=== PATIENT | female | born 1990 | race Caucasian/White ===

== ENCOUNTER 2019-10-17 19:56 | Inpatient (IN) ==
[2019-10-17] MEDS ORDERED: Naloxone 0.4 MG/ML INJ IVP PRN (23:18)
[2019-10-17] MEDS ORDERED: Acetaminophen 325 MG TABLET PO PRN (23:18)
[2019-10-17] MEDS ORDERED: Potassium Chloride 40 MEQ in D5% in 0.9% NACL 1,000 ML IVC SCH (23:45)
[2019-10-18 02:35] LABS: Hematocrit 20.5 % (35.3-44.9)
[2019-10-18 02:37] LABS: Basophils % 0.2 %; Hemoglobin 6.2 g/dL (11.5-15.4); Immature Granulocytes % 0.6 % (0-4); Immature Platelets 2.6 % (1.1-6.1); Lymphocytes # 1.5 K/mcL (0.6-4.6); Mean Corpuscular HGB Conc 30.2 g/dL (31.6-35.5); Mean Corpuscular Hemoglobin 30.7 pg (28.0-33.3); Mean Corpuscular Volume 101.5 fL (83.0-100.0); Mean Platelet Volume 9.7 fL (9.4-12.4); Monocytes # 0.5 K/mcL (0.0-1.3); Monocytes % 7.8 %; Neutrophils # 4.2 K/mcL (1.6-8.9); Nucleated Red Blood Cells 1.8 /100 WBC (0); Platelet Count 120 K/mcL (140-400); Red Blood Count 2.02 M/mcL (3.82-4.97); Red Cell Distribution Width 14.6 % (11.5-14.5); Segmented Neutrophils % 67.4 %; White Blood Count 6.2 K/mcL (4.3-11.1)
[2019-10-18 02:43] LABS: Platelet Estimate Decreased (Normal)
[2019-10-18 03:01] LABS: Alanine Aminotransferase < 3 Units/L (7-52); Albumin 2.3 g/dL (3.5-5.7); Albumin/Globulin Ratio 0.8 (1.1-2.2); Alkaline Phosphatase 39 Units/L (34-104); Aspartate Amino Transferase 7 Units/L (13-39); BUN/Creatinine Ratio 33 (6-26); Bilirubin,Total 0.2 mg/dL (0.3-1.0); Blood Urea Nitrogen 14 mg/dL (6-20); Calcium 8.7 mg/dL (8.6-10.3); Carbon Dioxide 39 mEq/L (23-29); Chloride 99 mEq/L (98-107); Globulin 2.9 g/dL (2.4-3.5); Glucose 144 mg/dL (70-105); Osmolality,Calculated 303 (280-300); Potassium 3.3 mEq/L (3.5-5.1); Sodium 145 mEq/L (136-145); Total Protein 5.2 g/dL (6.4-8.9); eGFR For African Americans > 60 (> 60); eGFR For Non-African Americans > 60 (> 60)
[2019-10-18 05:03] LABS: Hematocrit 18.3 % (35.3-44.9); Mean Corpuscular HGB Conc 29.5 g/dL (31.6-35.5); Mean Corpuscular Hemoglobin 30.9 pg (28.0-33.3); Mean Corpuscular Volume 104.6 fL (83.0-100.0); Mean Platelet Volume 9.5 fL (9.4-12.4); Red Blood Count 1.75 M/mcL (3.82-4.97); Red Cell Distribution Width 14.5 % (11.5-14.5); White Blood Count 6.2 K/mcL (4.3-11.1)
[2019-10-18 05:09] LABS: Platelet Count 98 K/mcL (140-400)
[2019-10-18 05:11] LABS: Hemoglobin 5.4 g/dL (11.5-15.4)
[2019-10-18 05:14] LABS: % Iron Saturation 13 % (15-50); Iron 26 mcg/dL (50-170); Transferrin 139 mg/dL (203-362)
[2019-10-18 05:16] LABS: BUN/Creatinine Ratio 36 (6-26); Blood Urea Nitrogen 15 mg/dL (6-20); Calcium 8.5 mg/dL (8.6-10.3); Carbon Dioxide 42 mEq/L (23-29); Chloride 97 mEq/L (98-107); Glucose 126 mg/dL (70-105); Magnesium 2.2 mg/dL (1.6-2.6); Osmolality,Calculated 300 (280-300); Potassium 3.5 mEq/L (3.5-5.1); Sodium 144 mEq/L (136-145); eGFR For African Americans > 60 (> 60); eGFR For Non-African Americans > 60 (> 60)
[2019-10-18 05:33] LABS: Ferritin 142 ng/mL (10-120)
[2019-10-18] MEDS ORDERED: 0.9 % Sodium Chloride 250 ML ONE ×2 (05:43→09:25)
[2019-10-18] MEDS: Divalproex (12 HR) 250 MG TABLET PO SCH (08:07)
[2019-10-18] MEDS ORDERED: Divalproex (12 HR) 500 MG TABLET PO SCH (09:00)
[2019-10-18 11:27] LABS: ABG Base Excess 17 mEq/L (-2 to 3); ABG HCO3 44 mEq/L (21-27); ABG Oxygen Saturation 99 % (95-98); ABG PCO2 68 mmHg (35-45); ABG PH 7.42 pH Units (7.32-7.45); ABG PO2 123 mmHg (85-104); ABG TCO2 46 mEq/L (20-26)
[2019-10-18 14:52] LABS: Immature Reticulocyte % 24.5 % (11.0-38.0); Retculocyte # 0.05 M/mcL (0.05-0.10); Reticulocyte % 1.4 % (1.6-2.8)
[2019-10-18 16:27] LABS: Hematocrit 35.4 % (35.3-44.9); Hemoglobin 11.4 g/dL (11.5-15.4); Mean Corpuscular HGB Conc 32.2 g/dL (31.6-35.5); Mean Corpuscular Hemoglobin 29.6 pg (28.0-33.3); Mean Corpuscular Volume 91.9 fL (83.0-100.0); Mean Platelet Volume 9.1 fL (9.4-12.4); Platelet Count 107 K/mcL (140-400); Red Blood Count 3.85 M/mcL (3.82-4.97); Red Cell Distribution Width 18.7 % (11.5-14.5); White Blood Count 4.2 K/mcL (4.3-11.1)
[2019-10-18 17:15] LABS: Hematocrit 31.3 % (35.3-44.9); Hemoglobin 10.4 g/dL (11.5-15.4)
[2019-10-18] MEDS: Divalproex (12 HR) 500 MG TABLET PO SCH (19:51)
[2019-10-18] MEDS: hydrOXYzine pamoate 25 MG CAPSULE PO SCH (19:51)
[2019-10-18 21:03] LABS: Hematocrit 31.2 % (35.3-44.9); Hemoglobin 10.3 g/dL (11.5-15.4)
[2019-10-19 02:01] LABS: Hematocrit 30.7 % (35.3-44.9); Hemoglobin 10.1 g/dL (11.5-15.4); Mean Corpuscular HGB Conc 32.9 g/dL (31.6-35.5); Mean Corpuscular Hemoglobin 30.1 pg (28.0-33.3); Mean Corpuscular Volume 91.4 fL (83.0-100.0); Mean Platelet Volume 9.7 fL (9.4-12.4); Platelet Count 117 K/mcL (140-400); Red Blood Count 3.36 M/mcL (3.82-4.97); Red Cell Distribution Width 18.6 % (11.5-14.5); White Blood Count 4.6 K/mcL (4.3-11.1)
[2019-10-19 02:20] LABS: BUN/Creatinine Ratio 50 (6-26); Blood Urea Nitrogen 18 mg/dL (6-20); Calcium 8.9 mg/dL (8.6-10.3); Carbon Dioxide 37 mEq/L (23-29); Chloride 101 mEq/L (98-107); Glucose 77 mg/dL (70-105); Osmolality,Calculated 293 (280-300); Potassium 4.3 mEq/L (3.5-5.1); Sodium 141 mEq/L (136-145); eGFR For African Americans > 60 (> 60); eGFR For Non-African Americans > 60 (> 60)
[2019-10-19 02:34] LABS: Thyroid Stimulating Hormone 3.497 mcIU/mL (0.340-5.600)
[2019-10-19] MEDS: Divalproex (12 HR) 250 MG TABLET PO SCH (08:03)
[2019-10-19] MEDS: hydrOXYzine pamoate 25 MG CAPSULE PO SCH (20:06)
[2019-10-19] MEDS: Divalproex (12 HR) 500 MG TABLET PO SCH (20:07)
[2019-10-20 04:21] LABS: Hematocrit 32.6 % (35.3-44.9); Hemoglobin 10.1 g/dL (11.5-15.4); Mean Corpuscular Hemoglobin 29.9 pg (28.0-33.3); Mean Corpuscular Volume 96.4 fL (83.0-100.0); Mean Platelet Volume 9.3 fL (9.4-12.4); Platelet Count 139 K/mcL (140-400); Red Blood Count 3.38 M/mcL (3.82-4.97); Red Cell Distribution Width 16.8 % (11.5-14.5)
[2019-10-20 04:47] LABS: BUN/Creatinine Ratio 38 (6-26); Blood Urea Nitrogen 16 mg/dL (6-20); Calcium 8.9 mg/dL (8.6-10.3); Carbon Dioxide 37 mEq/L (23-29); Chloride 99 mEq/L (98-107); Glucose 71 mg/dL (70-105); Osmolality,Calculated 292 (280-300); Potassium 4.5 mEq/L (3.5-5.1); Sodium 141 mEq/L (136-145); eGFR For African Americans > 60 (> 60); eGFR For Non-African Americans > 60 (> 60)
[2019-10-20] MEDS ORDERED: Isovue-370 500 ML BOTTLE IVP ONE (07:47)
[2019-10-20] MEDS: cefTRIAXone 1,000 MG in Water for inj. (sterile) 10 ML IVP SCH (10:40)
[2019-10-20] MEDS: Azithromycin 500 MG in 0.9 % Sodium Chloride 250 ML IVPB SCH (10:40)
[2019-10-20] MEDS: Divalproex (12 HR) 250 MG TABLET PO SCH (10:40)
[2019-10-20 11:29] LABS: Influenza A PCR Negative (Negative); Influenza B PCR Negative (Negative); Resp. Syncytial Virus PCR Negative (Negative)
[2019-10-20 12:29] LABS: Bilirubin,Urine Negative (Negative); Blood,Urine Small (Negative); Clarity,Urine Clear (Clear); Color,Urine Yellow (Yellow); Glucose,Urine (UA) Normal (Normal); Ketones,Urine Negative (Negative); Leukocyte Esterase,Urine Negative (Negative); Nitrite,Urine Positive (Negative); PH,Urine 7.5 pH Units (5.0-8.0); Protein,Urine Negative (Neg-Trace); Specific Gravity,Urine > 1.030 (1.010-1.025); Urobilinogen,Urine Normal (Normal)
[2019-10-20 12:38] LABS: Bacteria,Urine Moderate per hpf (None-Few); Hyaline Casts,Urine None Seen per lpf (None-Few); Squamous Epithelial Cell,Urine Many per lpf (None-Few)
[2019-10-20] MEDS: hydrOXYzine pamoate 25 MG CAPSULE PO SCH (20:56)
[2019-10-20] MEDS: Divalproex (12 HR) 500 MG TABLET PO SCH (20:57)
[2019-10-21] MEDS: Divalproex (12 HR) 250 MG TABLET PO SCH (07:37)
[2019-10-21] MEDS: Azithromycin 500 MG in 0.9 % Sodium Chloride 250 ML IVPB SCH (07:37)
[2019-10-21 08:26] LABS: Hematocrit 35.2 % (35.3-44.9); Hemoglobin 11.4 g/dL (11.5-15.4); Mean Corpuscular HGB Conc 32.4 g/dL (31.6-35.5); Mean Corpuscular Hemoglobin 30.2 pg (28.0-33.3); Mean Corpuscular Volume 93.4 fL (83.0-100.0); Platelet Count 188 K/mcL (140-400); Red Blood Count 3.77 M/mcL (3.82-4.97); Red Cell Distribution Width 15.8 % (11.5-14.5); White Blood Count 5.2 K/mcL (4.3-11.1)
[2019-10-21 08:44] LABS: BUN/Creatinine Ratio 43 (6-26); Blood Urea Nitrogen 17 mg/dL (6-20); Calcium 9.1 mg/dL (8.6-10.3); Carbon Dioxide 36 mEq/L (23-29); Chloride 99 mEq/L (98-107); Glucose 77 mg/dL (70-105); Osmolality,Calculated 294 (280-300); Potassium 4.7 mEq/L (3.5-5.1); Sodium 142 mEq/L (136-145); eGFR For African Americans > 60 (> 60); eGFR For Non-African Americans > 60 (> 60)
[2019-10-21] MEDS: Ampicillin/Sulbactam 3,000 MG in 0.9 % Sodium Chloride Mini Bag 100 ML IVPB SCH ×2 (11:23→17:39)
[2019-10-21] MEDS: cefTRIAXone 1,000 MG in Water for inj. (sterile) 10 ML IVP SCH (13:52)
[2019-10-21] MEDS: Divalproex (12 HR) 500 MG TABLET PO SCH (20:06)
[2019-10-21] MEDS: hydrOXYzine pamoate 25 MG CAPSULE PO SCH (20:06)
[2019-10-22] MEDS: Ampicillin/Sulbactam 3,000 MG in 0.9 % Sodium Chloride Mini Bag 100 ML IVPB SCH ×2 (00:48→06:21)
[2019-10-22 07:21] LABS: Hematocrit 35.6 % (35.3-44.9); Hemoglobin 10.9 g/dL (11.5-15.4); Mean Corpuscular HGB Conc 30.6 g/dL (31.6-35.5); Mean Corpuscular Hemoglobin 29.4 pg (28.0-33.3); Platelet Count 194 K/mcL (140-400); Red Blood Count 3.71 M/mcL (3.82-4.97); Red Cell Distribution Width 15.9 % (11.5-14.5); White Blood Count 4.1 K/mcL (4.3-11.1)
[2019-10-22 07:45] LABS: BUN/Creatinine Ratio 41 (6-26); Blood Urea Nitrogen 16 mg/dL (6-20); Calcium 8.8 mg/dL (8.6-10.3); Carbon Dioxide 36 mEq/L (23-29); Chloride 100 mEq/L (98-107); Glucose 64 mg/dL (70-105); Osmolality,Calculated 289 (280-300); Potassium 4.7 mEq/L (3.5-5.1); Sodium 140 mEq/L (136-145); eGFR For African Americans > 60 (> 60); eGFR For Non-African Americans > 60 (> 60)
[2019-10-22] MEDS: Divalproex (12 HR) 250 MG TABLET PO SCH (09:08)
[2019-10-22] MEDS: Piperacillin/Tazobactam 3.375 GM in 0.9 % Sodium Chloride Mini Bag 100 ML IVPB SCH ×2 (09:11→19:26)
[2019-10-22] MEDS: Ipratropium/Albuterol Neb 3 ML IH SCH ×3 (10:34→22:18)
[2019-10-22] MEDS: hydrOXYzine pamoate 25 MG CAPSULE PO SCH (20:26)
[2019-10-22] MEDS: Divalproex (12 HR) 500 MG TABLET PO SCH (20:26)
[2019-10-23] MEDS: Piperacillin/Tazobactam 3.375 GM in 0.9 % Sodium Chloride Mini Bag 100 ML IVPB SCH ×3 (00:27→16:19)
[2019-10-23] MEDS: Ipratropium/Albuterol Neb 3 ML IH SCH ×4 (03:47→21:19)
[2019-10-23 07:29] LABS: Basophils % 0.2 %; Eosinophils % 0.2 %; Hematocrit 35.4 % (35.3-44.9); Hemoglobin 10.7 g/dL (11.5-15.4); Immature Granulocytes % 0.6 % (0-4); Lymphocytes # 1.9 K/mcL (0.6-4.6); Lymphocytes % 39.4 %; Mean Corpuscular HGB Conc 30.2 g/dL (31.6-35.5); Mean Corpuscular Hemoglobin 29.3 pg (28.0-33.3); Mean Platelet Volume 8.9 fL (9.4-12.4); Monocytes # 0.6 K/mcL (0.0-1.3); Monocytes % 12.2 %; Neutrophils # 2.2 K/mcL (1.6-8.9); Platelet Count 181 K/mcL (140-400); Red Blood Count 3.65 M/mcL (3.82-4.97); Red Cell Distribution Width 15.8 % (11.5-14.5); Segmented Neutrophils % 47.4 %; White Blood Count 4.7 K/mcL (4.3-11.1)
[2019-10-23 08:06] LABS: INR 0.9; Prothrombin Time 10.7 Seconds (9.4-12.1)
[2019-10-23 09:45] LABS: Alanine Aminotransferase < 3 Units/L (7-52); Albumin 2.6 g/dL (3.5-5.7); Albumin/Globulin Ratio 0.8 (1.1-2.2); Alkaline Phosphatase 38 Units/L (34-104); Aspartate Amino Transferase 9 Units/L (13-39); BUN/Creatinine Ratio 31 (6-26); Bilirubin,Total 0.3 mg/dL (0.3-1.0); Blood Urea Nitrogen 15 mg/dL (6-20); Calcium 9.1 mg/dL (8.6-10.3); Carbon Dioxide 33 mEq/L (23-29); Chloride 102 mEq/L (98-107); Globulin 3.2 g/dL (2.4-3.5); Glucose 63 mg/dL (70-105); Magnesium 2.1 mg/dL (1.6-2.6); Osmolality,Calculated 285 (280-300); Potassium 4.9 mEq/L (3.5-5.1); Sodium 138 mEq/L (136-145); Total Protein 5.8 g/dL (6.4-8.9); eGFR For African Americans > 60 (> 60); eGFR For Non-African Americans > 60 (> 60)
[2019-10-23] MEDS: Divalproex (12 HR) 250 MG TABLET PO SCH (09:59)
[2019-10-23 10:01] LABS: Valproate 56 mcg/mL (50-100)
[2019-10-23 13:57] LABS: Mycoplasma pneumoniae IgG 0.26 U/L (<=0.09)
[2019-10-23] MEDS ORDERED: *HR* FentaNYL (PF) 100 MCG/2 ML VIAL ONE (16:56)
[2019-10-23] MEDS ORDERED: *HR* Midazolam HCl 5 MG/5 ML VIAL IVP ONE ×2 (16:57→17:29)
[2019-10-23] MEDS ORDERED: *HR* FentaNYL (PF) 100 MCG/2 ML VIAL IVP ONE (17:29)
[2019-10-23] MEDS ORDERED: Tetracaine/Benzocaine/Butamben 1 SPRAY AEROSOL MM ONE (17:29)
[2019-10-23] MEDS: Divalproex (12 HR) 500 MG TABLET PO SCH (21:05)
[2019-10-23] MEDS: hydrOXYzine pamoate 25 MG CAPSULE PO SCH (21:05)
[2019-10-24] MEDS: Piperacillin/Tazobactam 3.375 GM in 0.9 % Sodium Chloride Mini Bag 100 ML IVPB SCH ×3 (01:23→16:29)
[2019-10-24] MEDS: Ipratropium/Albuterol Neb 3 ML IH SCH ×5 (04:11→21:50)
[2019-10-24] MEDS: Divalproex (12 HR) 250 MG TABLET PO SCH (07:34)
[2019-10-24] MEDS: Divalproex (12 HR) 500 MG TABLET PO SCH (20:14)
[2019-10-24] MEDS: Ondansetron ODT 4 MG TAB.RAPDIS SL PRN (20:34)
[2019-10-25] MEDS: Piperacillin/Tazobactam 3.375 GM in 0.9 % Sodium Chloride Mini Bag 100 ML IVPB SCH ×2 (00:27→07:52)
[2019-10-25] MEDS: hydrOXYzine pamoate 25 MG CAPSULE PO SCH (00:35)
[2019-10-25 01:24] LABS: Hematocrit 33.5 % (35.3-44.9); Hemoglobin 10.4 g/dL (11.5-15.4); Mean Corpuscular Hemoglobin 30.1 pg (28.0-33.3); Mean Corpuscular Volume 97.1 fL (83.0-100.0); Mean Platelet Volume 8.9 fL (9.4-12.4); Platelet Count 185 K/mcL (140-400); Red Blood Count 3.45 M/mcL (3.82-4.97); Red Cell Distribution Width 15.9 % (11.5-14.5)
[2019-10-25 01:38] LABS: BUN/Creatinine Ratio 35 (6-26); Blood Urea Nitrogen 18 mg/dL (6-20); Calcium 8.9 mg/dL (8.6-10.3); Carbon Dioxide 30 mEq/L (23-29); Chloride 102 mEq/L (98-107); Glucose 103 mg/dL (70-105); Magnesium 1.9 mg/dL (1.6-2.6); Osmolality,Calculated 286 (280-300); Potassium 4.6 mEq/L (3.5-5.1); Sodium 137 mEq/L (136-145); eGFR For African Americans > 60 (> 60); eGFR For Non-African Americans > 60 (> 60)
[2019-10-25] MEDS: Ipratropium/Albuterol Neb 3 ML IH SCH ×2 (03:26→10:32)
[2019-10-25] MEDS: Ondansetron ODT 4 MG TAB.RAPDIS SL PRN (05:46)
[2019-10-25] MEDS: Divalproex (12 HR) 250 MG TABLET PO SCH (07:51)
[2019-10-25 08:14] LABS: Basophils % 0.1 %; Eosinophils % 0.4 %; Hematocrit 35.2 % (35.3-44.9); Hemoglobin 10.8 g/dL (11.5-15.4); Immature Granulocytes % 0.4 % (0-4); Lymphocytes # 1.9 K/mcL (0.6-4.6); Lymphocytes % 22.9 %; Mean Corpuscular HGB Conc 30.7 g/dL (31.6-35.5); Mean Corpuscular Hemoglobin 29.3 pg (28.0-33.3); Mean Corpuscular Volume 95.4 fL (83.0-100.0); Mean Platelet Volume 8.9 fL (9.4-12.4); Monocytes # 0.7 K/mcL (0.0-1.3); Monocytes % 9.1 %; Neutrophils # 5.4 K/mcL (1.6-8.9); Platelet Count 184 K/mcL (140-400); Red Blood Count 3.69 M/mcL (3.82-4.97); Red Cell Distribution Width 15.9 % (11.5-14.5); Segmented Neutrophils % 67.1 %; White Blood Count 8.1 K/mcL (4.3-11.1)
[2019-10-25 15:20] VITALS: BP 100/64
== END 2019-10-25 13:25 | disposition home health service (06) | DRG 689 ==
LOC: 3BNU → SUATTDRO 22:14
PROVIDERS: ADMIT Internal Medicine; ATTEND Internal Medicine
PROC: ENDOEBX (2019-10-23 13:00)